=== PATIENT | female | born 1990 | race Caucasian/White ===

== ENCOUNTER 2022-04-26 15:00 | Emergency (ER) | payer OTHER ==
[~2022-04-26] VITALS: Ht 167.6 cm; Wt 76.4 kg
[2022-04-26] MEDS ORDERED: VYVA40CA3 PO (15:11)
[2022-04-26] MEDS ORDERED: ADDE1TAB14 PO (15:11)
[2022-04-26] MEDS ORDERED: VALA1TAB5 PO (15:11)
[2022-04-26] MEDS ORDERED: PROZ40CA PO (15:11)
[2022-04-26] MEDS ORDERED: NORCO, ANEXSIA 5/325MG TABLET (HYDROcodone/ACETAMINOPHEN) PO ONE (17:00)
[2022-04-26] MEDS ORDERED: HYDR-3713 PO (18:54)
[2022-04-26] MEDS ORDERED: KETOROLAC TROMETHAMINE 10 MG TAB PO ONE (18:55)
[2022-04-26] MEDS ORDERED: NORCO 5/325MG TABLET (HOME DOSE PACK) PO ONE (18:55)
[2022-04-26 19:36] VITALS: BP 131/92
== END 2022-04-26 19:41 | disposition home or self-care (01) ==
LOC: M ED 15:00
DX: S86.011A Strain of right Achilles tendon, initial encounter (principal); X50.9XXA Other and unspecified overexertion or strenuous movements or postures, initial encounter; Y92.89 Other specified places as the place of occurrence of the external cause; F90.9 Attention-deficit hyperactivity disorder, unspecified type; Z88.5 Allergy status to narcotic agent; Z79.899 Other long term (current) drug therapy